=== PATIENT | female | born 1945 | race Caucasian/White ===

== ENCOUNTER → 2017-12-02 | Day surgery (SDC) | payer OTHER ==
--- NOTE | 2017-12-09 09:59 | PATH ---
Surgical Pathology Report Patient Name: JAZZY ZAVALA [facility]. Rec. #: [id number] /Age/Gender: 1945 (Age: 72) / F Account: [id number] Location: [facility] Taken: 12/02/2017 Received: 12/02/2017 Reported: 12/09/2017 Physicians: Michelle Gibbs M.D. Specimen(s) Received LEFT BREAST CORE BIOPSY 2-3:00 Clinical History Nonpalpable lesion Ultrasound findings: Probably benign Final Diagnosis BREAST, LEFT, 2-3:00, BETWEEN 2 RIBS, ULTRASOUND GUIDED CORE BIOPSY: MESENCHYMAL NEOPLASM WITH NEURAL CREST DIFFERENTIATION. SEE COMMENT. Comment: Histologic sections show cores of small epithelioid to spindle cells with rare thin processes, indistinct cytoplasm in a variably myxoid background with rare lymphocytes. Focal areas of larger more pleomorphic nuclei, cytoplasmic intranuclear inclusions, smudgy chromatin, and inconspicuous nucleoli are present consistent with ancient change. Immunohistochemical stains performed and interpreted at [facility] show the neoplasm is negative for cytokeratin AE1/3. Additional stains performed at [place], [place] ([id number]) and interpreted at [facility] show the neoplasm is diffusely positive for S100, SOX-10, Vimentin, and p53 (patchy). CD34 highlight stromal cells and blood vessels. Factor 13 shows focally positivity, while EDGARDO-F shows weak patchy staining. Proliferative marker, Ki-67 labels rare nuclei (<1%). Desmin, HMB45, calponin, CD68 and SMA are negative. 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 Suggest clinical/radiologic correlation. Clinical presentation of multiple skin lesions noted. Case shown interdepartmentally. Findings discussed with Dr. Gibbs. Electronically Signed Kenna Maloney M.D. Gross Description Received in formalin labeled "left 2:30," are 3 villalobos-yellow, cylindrical portions of fibroadipose tissue ranging from 1.3-1.8 cm in length and averaging 0.1 cm in diameter. The specimens are submitted in toto in one cassette. Total formalin fixation time: Between 7-15 hours 12/02/201712/02/2017
== END | disposition home or self-care (01) ==
LOC: JRADUS-SUR 08:52
PROVIDERS: ATTEND Family Medicine
PROC: 0HBU3ZX Excision of Left Breast, Percutaneous Approach, Diagnostic (ICD-10-PCS; principal; 2017-12-02)
DX: D48.62 Neoplasm of uncertain behavior of left breast (principal)
CPT/HCPCS: 19083; 87899; 88305-TC; 88342-TC; A4648